=== PATIENT | male | born 1970 | race Caucasian/White ===

== ENCOUNTER 2019-04-24 11:07 | Outpatient (CLI) | payer OTHER ==
[2019-04-24 11:32] LABS: ALT (SGPT) 36 U/L (8-55); AST (SGOT) 21 U/L (5-34); Albumin 4.1 g/dL (3.5-5.0); Alkaline Phosphatase 68 U/L (40-150); Anion Gap 12 mmol/L (10-20); BUN (Urea Nitrogen) 16 mg/dL (8.9-20.6); Bilirubin, Total 0.4 mg/dL (0.2-1.2); CK (CPK) 71 U/L (30-200); Calc. Creatinine Clearance 0 mL/min (70-130); Calcium 9.8 mg/dL (7.8-10.44); Carbon Dioxide 28 mmol/L (22-29); Cardiac Risk 3.4 (Less than 4.5); Chloride 103 mmol/L (98-107); Cholesterol 117 mg/dl (< 200 Desired); Estimated GFR-MDRD 64; Globulin 3.9 g/dL (2.4-3.5); Glucose 103 mg/dL (70-105); HDL Cholesterol 34 mg/dL (>60 Neg Risk); LDL Cholesterol, Calculated 60 mg/dL; Potassium 4.3 mmol/L (3.5-5.1); Sodium 139 mmol/L (136-145); Triglycerides 115 mg/dL (Less than 150)
[2019-04-24 11:33] LABS: #Basophils 0.1 thou/uL (0.0-0.2); #Eosinphils 0.1 thou/uL (0.0-0.7); #Lymphocytes 3.2 thou/uL (1.20-3.40); #Monocytes 1.1 thou/uL (0.11-0.59); #Neutrophils 5.6 thou/uL (1.40-6.50); %Basophils 1.4 % (0.0-1.0); %Eosinophils 0.9 % (0.0-10.0); %Lymphocytes 31.2 % (21.0-51.0); %Monocytes 11.1 % (0.0-10.0); %Neutrophils 55.5 % (42.0-75.0); Hemoglobin 16.4 g/dL (14.0-18.0); Mean Corpuscular HGB CONC 32.4 g/dL (32.0-36.0); Mean Corpuscular Volume 92.5 fL (78.0-98.0); Mean Platelet Volume 7.3 fL (7.4-10.4); Platelet Count 298 thou/uL (130-400); Red Blood Cell (RBC) Count 5.46 mill/uL (4.70-6.10); White Blood Cell (WBC) Count 10.1 thou/uL (4.8-10.8)
[2019-04-24 11:35] LABS: Bilirubin Negative (Negative); Blood, Urine Large (Negative); Clarity Clear (Clear); Glucose, Urine (Dipstick) Negative (Negative); Leukocyte Negative (Negative); Nitrite Negative (Negative); Protein, Urine (Dipstick) > or equal to 300 mg/dL (Neg-Trace); Urobilinogen 0.2 mg/dL (Less than 2)
--- NOTE | 2019-04-24 11:59 | RAD ---
EXAM: Right shoulder 3 views: HISTORY: Right shoulder pain COMPARISON: None FINDINGS: Degenerative changes. No acute fracture or dislocation or other significant acute osseous abnormality. IMPRESSION: No significant acute process.
[2019-04-24 12:05] LABS: Urine Culture Reflex No No
[2019-04-24 12:10] LABS: Bacteria/HPF Rare-Few HPF (None Seen); PSA-Asymptomatic (SCREENING) 1.38 ng/mL (0-4.0); Squamous Epithelial 0-3 HPF (0-3); Thyroid Stimulating Hormone 1.1135 uIU/mL (0.35-4.94); WBC/HPF 0-3 HPF (0-3)
--- NOTE | 2019-04-24 13:29 | RAD ---
LUMBAR SPINE A TOTAL OF 6 VIEWS: INDICATION: Low back pain. COMPARISON: Comparison is made to lumbar films dated 01/16/2016. FINDINGS: There is anterior wedging of L3 with superior end plate deformity at L3 which is stable in appearance . Flowing osteophytes are again seen anteriorly and laterally most prominent at T12-L1, L1-2, and L2-3. Increasing osteophytes at L3-4 are noted since the prior exam. There is facet hypertrophy again no laure. No evidence f spondylolisthesis. Alignment is maintained with flexion and extension. IMPRESSION: Compression deformity at L3 is stable. Flow osteophytes again suggest changes of diffuse idiopathic skeletal hyperostosis which was noted on the prior exam. POS: SCARLETT
== END 2019-04-24 11:08 | disposition home or self-care (01) ==
LOC: SCSRAD 11:07
PROVIDERS: ATTEND Internal Medicine
DX: Z12.5 Encounter for screening for malignant neoplasm of prostate (principal); M25.511 Pain in right shoulder; M54.5 Low back pain; E78.5 Hyperlipidemia, unspecified; M79.10 Myalgia, unspecified site; R31.29 Other microscopic hematuria; M43.9 Deforming dorsopathy, unspecified
CPT/HCPCS: 36415; 72100; 80053; 80061; 81001; 82550; 84443; 85025; G0103

== ENCOUNTER 2019-05-11 07:21 | Outpatient (CLI) | payer OTHER ==
[2019-05-11] MEDS ORDERED: Iopamidol 300 61% 100 ML VIAL FS ONE (09:00)
--- NOTE | 2019-05-11 14:38 | CT ---
CT ABDOMEN AND PELVIS WITH AND WITHOUT IV CONTRAST: HISTORY: Hematuria. Protein in urine. COMPARISON: None available. FINDINGS: There is minimal linear scarring versus atelectasis at the left lung base. Lung bases are otherwise clear. No renal or ureteral calculi are seen bilaterally, and there is no hydronephrosis. There are a few s cattered subcentimeter too small to characterize hypodense lesions in the superior pole of the right kidney with subcentimeter too small to characterize hypodense lesions in the superior pole and inferi or pole left kidney. No enhancing renal mass is seen bilaterally. On the delayed images, no definit e filling defects are seen within the renal collecting systems bilaterally. The ureters are not well opacified but are not dilated or distended. The liver, spleen, pancreas, and bilateral adrenal glands demonstrate a grossly normal nonenhanced CT appearance. The urinary bladder is decompressed. There is colonic diverticulosis. A small amount of retained fecal material is seen in the colon. Vascular calcifications are seen in the abdominal aorta and iliac arteries, but the abdominal aorta i s normal in caliber. No free fluid, fluid collection, or lymphadenopathy is seen in the abdomen or pelvis. Degenerative changes are seen in the spine with bridging osteophytes present in the lower thoracic an d upper lumbar spine. There is a suggestion of fusion of the L2-3 vertebral bodies. No suspicious l ytic or sclerotic osseous lesions are identified. IMPRESSION: 1. No acute findings are seen in the abdomen or pelvis. 2. Subcentimeter too small to characterize hypodense lesions in each kidney. 3. No renal or ureteral calculi are seen bilaterally, and there is no enhancing renal mass present. POS: SCARLETT
== END 2019-05-11 07:22 | disposition home or self-care (01) ==
LOC: SCSCT 07:21
PROVIDERS: ATTEND Internal Medicine
DX: R31.29 Other microscopic hematuria (principal); N28.9 Disorder of kidney and ureter, unspecified
CPT/HCPCS: 74178; Q9967

== ENCOUNTER 2019-06-05 15:00 | Outpatient (CLI) | payer OTHER | END 2019-06-05 15:01 | disposition home or self-care (01) | LOC: SLEEPLAB 15:00 | PROVIDERS: ATTEND Internal Medicine | DX: G47.33 Obstructive sleep apnea (adult) (pediatric) (principal); R40.0 Somnolence; K21.9 Gastro-esophageal reflux disease without esophagitis; E66.9 Obesity, unspecified; I10 Essential (primary) hypertension; Z68.32 Body mass index [BMI] 32.0-32.9, adult | CPT/HCPCS: 95806 ==

== ENCOUNTER 2019-07-14 20:30 | Outpatient (CLI) | payer OTHER | END 2019-07-14 20:31 | disposition home or self-care (01) | LOC: SLEEPLAB 20:30 | PROVIDERS: ATTEND Internal Medicine | DX: G47.33 Obstructive sleep apnea (adult) (pediatric) (principal); K21.9 Gastro-esophageal reflux disease without esophagitis; R40.0 Somnolence; I10 Essential (primary) hypertension; E66.9 Obesity, unspecified; Z68.32 Body mass index [BMI] 32.0-32.9, adult | CPT/HCPCS: 95811 ==

== ENCOUNTER 2019-10-10 12:49 | Outpatient (CLI) | payer OTHER ==
--- NOTE | 2019-10-10 13:15 | ULT ---
Bilateral renal ultrasound CLINICAL INDICATION: Chronic kidney disease. COMPARISON: None FINDINGS: Right kidney: There is no evidence of a renal mass, renal calculus, or hydronephrosis seen. The right kidney measures 12.7 cm x 6.6 cm. Left kidney: There is no evidence of a renal mass, renal calculus, or hydronephrosis. The left kidney measures 12.3 cm x 5.7 cm. Urinary bladder: Mostly decompressed and not well evaluated on this exam. Urinary bladder volume is 2 3 mL. IMPRESSION: Normal appearing bilateral kidneys without renal cortical thinning or evidence of hydronephrosis.
== END 2019-10-10 12:50 | disposition home or self-care (01) ==
LOC: SCSULT 12:49
PROVIDERS: ATTEND Internal Medicine Nephrology
DX: N18.2 Chronic kidney disease, stage 2 (mild) (principal)
CPT/HCPCS: 76770